=== PATIENT | male | born 1990 ===

== ENCOUNTER 2018-04-18 21:16 | Emergency (ER) | payer MEDICAID ==
[2018-04-18] MEDS ORDERED: IBUPROFEN 400 MG TABLET PO ONE (21:22)
[2018-04-18] MEDS ORDERED: 0.9 % SODIUM CHLORIDE 1,000 ML BAG IV ONE ×2 (21:35→22:34)
[2018-04-18] MEDS ORDERED: ACETAMINOPHEN 500 MG TABLET PO ONE (21:36)
--- NOTE | 2018-04-18 21:42 | Emergency Department Record ---
History of Present Illness - General Chief Complaint: Headache Migraine Stated Complaint: HEADACHE/JESSIKA Time Seen by Provider: 04/18/18 21:23 Source: Patient Mode of Arrival: Ambulatory Limitations: No limitations - History of Present Illness Initial Comments: 27 yo male presents with a cough for the last two days, headache, chills. He states he has a long history of migraines with frequent headaches usually triggered by noise. 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 His headache started 3 days ago very mild and gradually increased. The cough started two days ago. The cough is productive. The cough now makes the headache worse. He has associated congestion and drainage. No nausea or vomiting. No diarrhea. No neck pain or pain with neck movement. No sore throat. It hurts to cough in the chest in the middle. No abdominal pain. He denies any fevers the last three days. MD Complaint: Cough, Fever, Nasal congestion, Other (Headache) Onset/Timin -: Days(s) Severity: Moderate Severity scale (1-10): 10 Quality: Aching Consistency: Constant Improves With: NSAID Worsens With: Other (coughing) Associated Symptoms: Chills, Cough, Nasal congestion Treatments Prior to Arrival: Ibuprofen - Related Data Previous Rx's Medication Instructions Recorded Albuterol Sulfate [Proair Hfa] 1 - 2 puff IH .EVERY 4-6 HOURS PRN 09/12/15 #1 inhaler Azithromycin [Zithromax] 250 mg PO DAILY #4 tablet 04/18/18 Allergies Allergy/AdvReac Type Severity Reaction Status Date / Time amoxicillin Allergy Mild RASH Unverified 11/22/15 10:24 cefixime [From Suprax] Allergy Mild RASH Unverified 11/22/15 10:24 clindamycin Allergy Mild RASH Unverified 11/22/15 10:24 Travel Screening - Travel/Exposure Within Last 30 Days Have you traveled within the last 30 days?: No Review of Systems Constitutional: Reports: Chills. Denies: Fever, Malaise, Weakness Eyes: Denies: Eye discharge, Eye pain, Photophobia, Vision change ENT: Reports: Congestion. Denies: Ear pain, Throat pain Respiratory: Reports: Cough (Frequent harsh cough). Denies: Dyspnea, Hemoptysis , Stridor, Wheezes Cardiovascular: Reports: Chest pain (with coughing) Endocrine: Denies: Fatigue, Polydipsia, Polyuria Gastrointestinal: Denies: Abdominal pain, Diarrhea, Nausea, Vomiting Genitourinary: Denies: Dysuria, Frequency, Hematuria Musculoskeletal: Denies: Arthralgia, Back pain, Joint swelling, Myalgia, Neck pain Skin: Denies: Bruising, Change in color, Rash Neurological: Reports: Headache. Denies: Confusion, Numbness, Tingling, Tremors , Vertigo, Weakness Psychiatric: Denies: Anxiety Hematological/Lymphatic: Denies: Easy bleeding, Easy bruising, Swollen glands Past Medical History - SOCIAL HISTORY Smoking Status: Current every day smoker Alcohol Use: None Drug Use: None - RESPIRATORY Hx Respiratory Disorders: No - CARDIOVASCULAR Hx Cardio Disorders: No - NEURO Hx Neuro Disorders: No - GI Hx GI Disorders: No - Hx Genitourinary Disorders: No - ENDOCRINE Hx Endocrine Disorders: No - MUSCULOSKELETAL Hx Musculoskeletal Disorders: No - PSYCH Hx Psych Problems: No - HEMATOLOGY/ONCOLOGY Hx Hematology/Oncology Disorders: No Family Medical History Any Significant Family History?: No Physical Exam - General General Appearance: Alert, Oriented x3, Cooperative, No acute distress, Other ( Non ill appearing, conversational, ) Limitations: No limitations - Head Head exam: Atraumatic, Normocephalic, Normal inspection - Eye Eye exam: Normal appearance, PERRL, EOMI. negative: Conjunctival injection, Periorbital swelling, Periorbital tenderness, Scleral icterus - ENT ENT exam: Normal exam, Mucous membranes moist, Normal orophraynx, TM's normal bilaterally Ear exam: Normal external inspection Nasal Exam: Discharge. negative: Dried blood, Foreign body, Sinus tenderness Mouth exam: Normal external inspection Teeth exam: Normal inspection Throat exam: Normal inspection. negative: Tonsillar erythema, Tonsillomegaly, Tonsillar exudate, R peritonsillar mass, L peritonsillar mass - Neck Neck exam: Normal inspection, Full ROM, Other (Very supple neck, non tender with complete full ROM). negative: Lymphadenopathy, Meningismus, Tenderness - Respiratory Respiratory exam: Normal lung sounds bilaterally, Other (Frequent harsh cough). negative: Respiratory distress, Rhonchi, Stridor, Wheezes - Cardiovascular Cardiovascular Exam: Normal rhythm, Normal heart sounds, Tachycardia - GI/Abdominal GI/Abdominal exam: Soft. negative: Tenderness - Rectal Rectal exam: Deferred - exam: Deferred - Extremities Extremities exam: Normal inspection, Full ROM, Normal capillary refill. negative: Pedal edema, Tenderness - Back Back exam: Reports: Normal inspection, Full ROM. Denies: CVA tenderness (R), CVA tenderness (L), Muscle spasm, Rash noted, Tenderness - Neurological Neurological exam: Alert, CN II-XII intact, Normal gait, Oriented X3. negative : Altered, Motor sensory deficit - Psychiatric Psychiatric exam: Normal affect, Normal mood, Other (Normal mood and affect, very conversaional, ). negative: Agitated, Anxious - Skin Skin exam: Dry, Intact, Normal color, Warm. negative: Cyanosis, Diaphoretic, Erythema, Mottled Course Vital Signs 04/18/18 21:20 Temperature 103.2 F H Pulse Rate [ 115 H Pulse Ox Probe] Respiratory 28 H Rate Blood Pressure 117/66 [Left Arm] Pulse Ox 95 - Reevaluation(s) Reevaluation #1: the patient was seen and examined gradual onset of headache the last three days with cough that is harsh and productive the last 2 days The headache occurs with the cough. His neck is supple and non tender. He is well appearing. He is not clinically high suspicious for meningitis. 04/18/18 21:44 04/18/18 21:58 The CBC is normal The influenza are negative 04/18/18 22:34 The BMP was reviewed No significant changes The XR was reviewed. No acute infiltrate. 04/18/18 22:38 The temp is down to 100.2 His headache is gone He is feeling much improved. Continue hydration. 04/19/18 Vitals at DC normal The patient feels greatly improved Cough persists. No headache, nausea, fever. We discussed home care and reasons to return to the ED Medical Decision Making - Lab Data Result diagrams: 04/18/18 21:48 04/18/18 21:48 Disposition Disposition: Discharge Clinical Impression: Headache, Bronchitis Disposition: Home, Self-Care Condition: (1) Good Instructions: Migraine Headache (ED), Acute Bronchitis (ED) Additional Instructions: Rest and stay well hydrated Call your doctor for close follow up Tylenol or Motrin for discomfort Return if you have any worsening symptoms, vomiting, return of headache or any new concerns Prescriptions: Azithromycin [Zithromax] 250 mg PO DAILY #4 tablet Forms: Patient Portal Access Time of Disposition: 23:45 Quality - Quality Measures Quality Measures: N/A - Blood Pressure Screening Does Patient Have Any of the Following: No Blood Pressure Classification: Normal BP Reading Systolic Measurement: 110 Diastolic Measurement: 54 Screening for High Blood Pressure: < Normal BP, F/U Not Required > [G8783]
[2018-04-18 21:45] LABS: INFLUENZA A NEGATIVE (NEGATIVE); INFLUENZA B NEGATIVE (NEGATIVE)
[2018-04-18 21:56] LABS: BASO % 0.9 % (0-6); EOS % 0.4 % (0-6); GRAN % 72.1 % (47-80); HEMATOCRIT 40.1 % (42.0-52.0); LYMPH % 11.9 % (16-45); MEAN CELL VOLUME 86.1 fl (81-97); MEAN CORPUSCULAR HGB CONC 34.9 g/dl (32-36); MONO % 14.7 % (0-9); PLATELET COUNT 181 K/uL (130-400); RED BLOOD COUNT 4.66 M/uL (4.40-5.70); WHITE BLOOD COUNT W/O DIFF 10.3 K/uL (4.2-12.2)
[2018-04-18 22:08] LABS: BLOOD UREA NITROGEN 13 mg/dL (6-20); EST GLOMERULAR FILTRATION RATE > 60 mL/min
[2018-04-18 22:11] LABS: GLUCOSE,RANDOM 113 mg/dL (74-109)
[2018-04-18] MEDS ORDERED: AZITHROMYCIN 500 MG TABLET PO ONE (22:43)
--- NOTE | 2018-04-19 10:44 | RADIOLOGY REPORT ---
EXAM: CHEST, TWO VIEWS HISTORY: COUGH AND FEVER. DIFFICULTY BREATHING. SYMPTOMS FOR THE PAST DAY. TECHNIQUE: PA and lateral upright views of the chest were obtained. Comparison: 09/12/15. FINDINGS: The cardiomediastinal silhouette and pulmonary vasculature are normal. The lungs are clear. There is no pneumothorax or effusion. The bones appear intact. IMPRESSION: NEGATIVE CHEST EXAMINATION. JOB NUMBER: [id number] MTDD
== END 2018-04-18 23:34 | disposition home or self-care (01) ==
LOC: ER 21:16
DX: J20.9 Acute bronchitis, unspecified (principal); R51 Headache; R50.81 Fever presenting with conditions classified elsewhere; R06.00 Dyspnea, unspecified; F17.210 Nicotine dependence, cigarettes, uncomplicated
CPT/HCPCS: 71046; 80048; 85025; 87400; 96360; 99284; J7030

== ENCOUNTER 2019-02-26 20:45 | Emergency (ER) | payer MEDICAID ==
[2019-02-26] MEDS ORDERED: DEXAMETHASONE SOD PHOSPHATE 10MG/ML VIAL PO ONE (20:56)
--- NOTE | 2019-02-26 21:02 | Emergency Department Record ---
History of Present Illness - General Chief complaint: Extremity Problem Stated complaint: L HAND RING FINGER/PALM PAIN Time Seen by Provider: 02/26/19 20:55 Source: Patient Mode of Arrival: Ambulatory Limitations: No limitations - History of Present Illness Initial comments: 28 yo male presents with left hand pain on and off for a month. The pain is located in over the 4th MCP joint area. The pain is a cramp like pain with flaxion of the 4th finger. The crampy pain feeling worsens with activity. It does not get stuck, click or pop. It does not involve any other fingers. NO warmth, redness, fever, swelling, or known injury. No history or orthopedic or hand disease. MD Complaint: Extremity pain, Joint pain -: Month(s) (1) Location: Left -: Yes Arthralgia, Yes Myalgia Radiation: Distal Quality: Aching, Other (cramping) Consistency: Constant Improves with: Rest Worsens with: Palpation, Weight bearing Associated Symptoms: Myalgias - Related Data Previous Rx's Medication Instructions Recorded Methylprednisolone [Medrol Dose 4 mg PO DAILY #1 tab.ds.pk 02/26/19 Pack] Allergies Allergy/AdvReac Type Severity Reaction Status Date / Time amoxicillin Allergy Mild RASH Verified 02/26/19 20:58 cefixime [From Suprax] Allergy Mild RASH Verified 02/26/19 20:58 clindamycin Allergy Mild RASH Verified 02/26/19 20:58 Review of Systems Constitutional: Denies: Chills, Fever, Weakness Eyes: Denies: Eye discharge ENT: Denies: Congestion, Throat pain Respiratory: Denies: Cough Cardiovascular: Denies: Chest pain, Syncope Endocrine: Denies: Fatigue Gastrointestinal: Denies: Abdominal pain, Diarrhea, Nausea, Vomiting Genitourinary: Denies: Dysuria, Frequency, Hematuria Musculoskeletal: Reports: Arthralgia, Myalgia Skin: Denies: Bruising, Change in color, Rash Neurological: Denies: Headache Psychiatric: Denies: Anxiety Hematological/Lymphatic: Denies: Easy bleeding, Easy bruising Past Medical History - SOCIAL HISTORY Smoking Status: Current every day smoker Drug Use: None - RESPIRATORY Hx Respiratory Disorders: No - CARDIOVASCULAR Hx Cardio Disorders: No - NEURO Hx Neuro Disorders: No - GI Hx GI Disorders: No - Hx Genitourinary Disorders: No - ENDOCRINE Hx Endocrine Disorders: No - MUSCULOSKELETAL Hx Musculoskeletal Disorders: No - PSYCH Hx Psych Problems: No - HEMATOLOGY/ONCOLOGY Hx Hematology/Oncology Disorders: No Physical Exam - General General Appearance: Alert, Oriented x3, Cooperative, No acute distress Limitations: No limitations - Head Head exam: Atraumatic, Normal inspection - Eye Eye exam: Normal appearance - ENT ENT exam: Normal exam Ear exam: Normal external inspection Nasal Exam: Normal inspection Mouth exam: Normal external inspection - Neck Neck exam: Normal inspection - Cardiovascular Peripheral Pulses: 2+: Radial (L) - Extremities Extremities exam: Normal inspection, Full ROM, Normal capillary refill, Tenderness. negative: Joint swelling, Pedal edema Image of Hand: 1 - normal inspection, no swelling. point tenderness at marked. Full flexion of the finger without limitation. No click, pop or hesitation to suggest trigger finger. No warmth, redness, or signs of injury or infection - Neurological Neurological exam: Alert, Oriented X3 - Psychiatric Psychiatric exam: Normal affect, Normal mood - Skin Skin exam: Dry, Intact, Normal color, Warm. negative: Erythema Course - Reevaluation(s) Reevaluation #1: The XR is negative Recommend splint for one week and recheck with his PCP I explained that at this time it is isolated to the one finger and possible tendonitis If the symptoms continue he may require a hand surgery or ortho follow up 02/26/19 22:17 Disposition Disposition: Discharge Clinical Impression: Tendonitis Disposition: Home, Self-Care Condition: (1) Good Instructions: Tendinitis (ED) Additional Instructions: Use the splint the next 7-10 days to rest and protect the finger Call your doctor to recheck the examination in 1-2 weeks Prescriptions: Methylprednisolone [Medrol Dose Pack] 4 mg PO DAILY #1 tab.ds.pk Forms: Patient Portal Access Time of Disposition: 22:18 Quality - Quality Measures Quality Measures: N/A - Blood Pressure Screening Does Patient Have Any of the Following: No Blood Pressure Classification: Pre-Hypertensive BP Reading Systolic Measurement: 120 Diastolic Measurement: 80 Screening for High Blood Pressure: < Pre-Hypertensive BP, F/U Documented > [ G8950] Pre-Hypertensive Follow-up Interventions: Referral to alternative/primary care provider.
--- NOTE | 2019-02-28 14:09 | RADIOLOGY REPORT ---
EXAM: LEFT HAND, THREE VIEWS HISTORY: PATIENT HAS PAIN IN THE LEFT FOURTH METACARPAL PHALANGEAL AREA. TECHNIQUE: Three views of the left hand are provided without comparison examinations. FINDINGS: There is no radiographic evidence of a fracture or dislocation of the left hand. No significant soft tissue abnormalities are visualized. IMPRESSION: NO RADIOGRAPHIC EVIDENCE OF AN ACUTE PROCESS INVOLVING THE LEFT HAND. JOB NUMBER: [id number] MTDD
== END 2019-02-26 22:56 | disposition home or self-care (01) ==
LOC: ER 20:45
DX: M65.842 Other synovitis and tenosynovitis, left hand (principal); F17.210 Nicotine dependence, cigarettes, uncomplicated
CPT/HCPCS: 99283 ×2; 73130; J1100

== ENCOUNTER 2019-12-29 09:14 | Emergency (ER) | payer MEDICAID ==
[2019-12-29] MEDS ORDERED: KETOROLAC 30 MG/ML VIAL IM ONE (09:22)
--- NOTE | 2019-12-29 09:24 | Emergency Department Record ---
History of Present Illness - General Chief complaint: Lower Extremity Pain Stated complaint: RIGHT HIP PAIN Time Seen by Provider: 12/29/19 09:21 Source: Patient Mode of Arrival: Ambulatory Limitations: No limitations - History of Present Illness Initial comments: 29 yo male presents with right hip pain for about a week and a half. 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 He is unaware of any specific injury. He states he is very hard on his body and has pain frequently. The pain is mostly posterior hip with some radiation down. No current weakness, numbness or tingling. He has had numbness before. No changes in michelet wel or bladder function. No swelling. No foot drop. No prior fractures, dislocations, diseases or surgery of the hip or spine. He has had similar issues on the left side in the past. MD Complaint: Joint pain -: Week(s) (1.5) Location: Right History of Same: No -: Yes Arthralgia, Yes Myalgia Radiation: Distal Severity scale (1-10): 7 Quality: Aching Consistency: Constant Improves with: Immobilization Worsens with: Walking, Weight bearing Associated Symptoms: Denies other symptoms - Related Data Home Medications Medication Instructions Recorded Confirmed Last Taken Naproxen Sodium [Aleve] 220 mg PO ASDIR 12/29/19 12/29/19 Unknown Previous Rx's Medication Instructions Recorded Cyclobenzaprine HCl [Flexeril] 10 mg PO TID #15 tablet 12/29/19 Methylprednisolone [Medrol Dose 4 mg PO DAILY #1 tab.ds.pk 12/29/19 Pack] Allergies Allergy/AdvReac Type Severity Reaction Status Date / Time amoxicillin Allergy Mild RASH Verified 12/29/19 09:21 cefixime [From Suprax] Allergy Mild RASH Verified 12/29/19 09:21 clindamycin Allergy Mild RASH Verified 12/29/19 09:21 Travel/Exposure Screening - Travel/Exposure Within Last 30 Days Have you traveled within the last 30 days?: No - Additonal Travel/Exposure Details Have you been exposed to anyone with a communicable illness?: No Review of Systems Constitutional: Denies: Chills, Fever, Malaise, Weakness Eyes: Denies: Eye discharge ENT: Denies: Congestion, Throat pain Respiratory: Denies: Cough, Dyspnea Cardiovascular: Denies: Chest pain, Syncope Endocrine: Denies: Fatigue Gastrointestinal: Denies: Abdominal pain, Diarrhea, Nausea, Vomiting Genitourinary: Denies: Dysuria, Frequency, Hematuria Musculoskeletal: Reports: Arthralgia, Myalgia. Denies: Back pain, Joint swe lling, Neck pain Skin: Denies: Bruising, Change in color, Rash Neurological: Denies: Abnormal gait, Headache, Numbness, Tremors, Weakness Psychiatric: Denies: Anxiety Hematological/Lymphatic: Denies: Easy bleeding, Easy bruising Past Medical History - SOCIAL HISTORY Smoking Status: Current every day smoker Drug Use: None - RESPIRATORY Hx Respiratory Disorders: No - CARDIOVASCULAR Hx Cardio Disorders: No - NEURO Hx Neuro Disorders: No - GI Hx GI Disorders: No - Hx Genitourinary Disorders: No - ENDOCRINE Hx Endocrine Disorders: No - MUSCULOSKELETAL Hx Musculoskeletal Disorders: No - PSYCH Hx Psych Problems: No - HEMATOLOGY/ONCOLOGY Hx Hematology/Oncology Disorders: No Physical Exam - General General Appearance: Alert, Oriented x3, Cooperative, No acute distress Limitations: No limitations - Head Head exam: Atraumatic, Normal inspection - Eye Eye exam: Normal appearance, PERRL. negative: Conjunctival injection, Scleral icterus - ENT ENT exam: Normal exam Ear exam: Normal external inspection Nasal Exam: Normal inspection Mouth exam: Normal external inspection - Neck Neck exam: Normal inspection - GI/Abdominal GI/Abdominal exam: Soft. negative: Tenderness (no groin or RLQ tenderness) - Rectal Rectal exam: Deferred - exam: Deferred - Extremities Extremities exam: Normal inspection, Full ROM, Normal capillary refill, Tenderness. negative: Calf tenderness, Joint swelling, Pedal edema Image of Full Body: 1 - tender in the SI to glutteal area, pain with crossing his leg, pain with certain positions and movements. No Pain in the groin, no pain with log roll of the hip, no swelling - Back Back exam: Reports: Full ROM. Denies: CVA tenderness (R), CVA tenderness (L), Muscle spasm, Paraspinal tenderness, Rash noted, Tenderness, Vertebral tenderness - Neurological Neurological exam: Alert, Normal gait, Oriented X3. negative: Abnormal gait, Altered, Motor sensory deficit - Psychiatric Psychiatric exam: Normal affect, Normal mood - Skin Skin exam: Dry, Intact, Normal color, Warm Course Vital Signs 12/29/19 09:18 Temperature 98.4 F Pulse Rate 96 H Respiratory 20 Rate Blood Pressure 137/94 Pulse Ox 99 - Reevaluation(s) Reevaluation #1: 12/29/19 09:54 The examination is consistent with soft tissue strain. It could be SI related as well given the location. No signs of neuro-vascular changes. No weakness. No swelling to suggest infection, DVT, mass. XR ordered of the hip 12/29/19 10:13 The XR is negative for any acute process. Likely small bone island in the femoral neck We discussed the XR and a copy of the report was given to the patient We discussed home care, follow up with a PCP and reasons to return to the ED Disposition Disposition: Discharge Clinical Impression: Strain of hip Disposition: Home, Self-Care Condition: (1) Good Instructions: Hip Sprain (ED) Additional Instructions: Review this ER visit and the tests performed with your family doctor Call your doctor for the next available follow up appointment to review the XR including the small bone island to discuss if any other imaging (CT) is needed Return to the ER for a recheck immediately if worse, any new concerns or questions Take the prescriptions provided as directed Ice the hip at night after a long day of working Prescriptions: Cyclobenzaprine HCl [Flexeril] 10 mg PO TID #15 tablet Methylprednisolone [Medrol Dose Pack] 4 mg PO DAILY #1 tab.ds.pk Forms: Patient Portal Access Time of Disposition: 10:14 Quality - Quality Measures Quality Measures: N/A - Blood Pressure Screening Does Patient Have Any of the Following: No Blood Pressure Classification: Hypertensive Reading Systolic Measurement: 137 Diastolic Measurement: 94 Screening for High Blood Pressure: < Pre-Hypertensive BP, F/U Documented > [G8950] Pre-Hypertensive Follow-up Interventions: Referral to alternative/primary care provider.
--- NOTE | 2019-12-29 10:07 | RADIOLOGY REPORT ---
EXAMINATION: Right Hip Minimum Two Views EXAM DATE: 12/29/2019 9:41 AM TECHNIQUE: AP pelvis and right frog leg lateral hip views INDICATION: hip pain COMPARISON: None ENCOUNTER: Initial FINDINGS: 3 views of the right hip show no evidence of fracture or dislocation. Alignment is anatomic. There is a likely bone island within the right femoral neck. No degenerative changes are noted. IMPRESSION: No fracture or dislocation. Dictated by: Cole Badillo MD on 12/29/2019 10:04 AM. .
== END 2019-12-29 10:33 | disposition home or self-care (01) ==
LOC: ER 09:14
DX: S76.011A Strain of muscle, fascia and tendon of right hip, initial encounter (principal); X58.XXXA Exposure to other specified factors, initial encounter; F17.210 Nicotine dependence, cigarettes, uncomplicated
CPT/HCPCS: 96372; 99284; J1885